=== PATIENT | male | born 1980 | race Hispanic/Latino ===

== ENCOUNTER → 2017-03-25 | Outpatient (CLI) | payer OTHER ==
[~2017-03-25] MED LIST: ALBU17IN INH; ALBU17IN2 INH; ALPH1CAP PO; AMBI10TA PO; APAP325T PO; ASTELIN NASAL SPRAY; AZEL0.1S3; BACL10TA2 PO; BENA25CA2 PO; FLUT0.003 EX; GINK500C3 PO; HYDR10T PO; KETO10TAB PO; LIDO1OIN2 EXT; LISI10TA2 PO; LORA10TA2 PO; LORT1TAB PO; MONT10TA2 PO; MUCI600T34 PO; NEXI20CA PO; NORT10SO PO; OLOP1OPD OU; PERC5TAB6 PO; PSEU30TA4 PO; QNAS80AE; REFR0.1D OU; ROBA500T PO; ROPI1TAB PO; TIZA4CAP3 PO; VITA100037 PO; VITA100072 PO; VITA200016 PO; VITA500T53 PO; VITA500T88 PO; VITATAB11 PO; ZYRT10CA PO; ZYRT10TA2 PO; [UNRECOGNIZED DRUG - CODE]; [UNRECOGNIZED DRUG - CODE] PO; [UNRECOGNIZED DRUG - CODE] XX; [UNRECOGNIZED DRUG - OTHER]; [UNRECOGNIZED DRUG - OTHER] PO; [UNRECOGNIZED DRUG - REMARK] PO; allergy shots SC; focus pain cream TOP
--- NOTE | 2017-03-25 11:11 | REP ---
NUCLEAR GASTRIC EMPTYING SCAN: Following the oral administration of 0.935 millicuries technetium 99m sulfur colloid in two scrabbled eggs in 6 ounces of water, multiple images of the upper abdomen are performed in the anterior and posterior projections for 90 minutes. The gastric activity is measured. At the end of 90 minutes, 42% of the ingested activity has emptied from the stomach. This yields at t-1/2 of 114 minutes, which is above normal t-1/2 of 90 minutes. IMPRESSION: Mildly delayed gastric emptying. Signed by Reyes Caldera MD 03/25/2017 05:41 P
== END ==
LOC: M RAD 08:39
PROVIDERS: ATTEND Internal Medicine Gastroenterology
DX: K30 Functional dyspepsia (principal)

== ENCOUNTER 2018-02-19 12:47 | Day surgery (SDC) | payer OTHER ==
[2018-02-19] MEDS: NS 1,000 ML IV (13:00)
[2018-02-19] MEDS ORDERED: LIDOCAINE 2% INJ 100 MG/5 ML SDV (FOR ANES.) As Ordered (13:31)
[2018-02-19] MEDS ORDERED: PROPOFOL 200 MG/20 ML VIAL As Ordered ×2 (13:32)
== END 2018-02-19 14:25 | disposition home or self-care (01) ==
LOC: M OPP 12:47
DX: K22.8 Other specified diseases of esophagus (principal); K44.9 Diaphragmatic hernia without obstruction or gangrene; R13.10 Dysphagia, unspecified; R12 Heartburn; E11.9 Type 2 diabetes mellitus without complications; I10 Essential (primary) hypertension; K21.9 Gastro-esophageal reflux disease without esophagitis; F41.9 Anxiety disorder, unspecified; F32.9 Major depressive disorder, single episode, unspecified; J45.909 Unspecified asthma, uncomplicated; G47.33 Obstructive sleep apnea (adult) (pediatric); R00.2 Palpitations; Z79.891 Long term (current) use of opiate analgesic; Z79.899 Other long term (current) drug therapy; Z88.8 Allergy status to other drugs, medicaments and biological substances
CPT/HCPCS: 43239

== ENCOUNTER → 2018-05-12 | Outpatient (CLI) | payer OTHER ==
[2018-05-12 10:09] LABS: BASO % 0.6 % (0.0-1.0); EOS # 0.1 10^3/uL (0.0-0.50); EOS % 2.3 % (0.0-3.0); HEMATOCRIT 46.5 % (42.0-52.0); HEMOGLOBIN 14.9 g/dl (13.5-17.5); IMMATURE GRANULOCYTE % 0.6 % (0-3.0); LYMPH # 1.9 10^3/uL (1.5-4.5); LYMPH % 39.5 % (24.0-44.0); MEAN CORPUSCULAR VOLUME 77.9 fl (80.0-96.0); MONO # 0.5 10^3/uL (0.0-0.8); MONO % 9.3 % (0.0-5.0); NEUTROPHILS # 2.3 10^3/uL (1.8-7.7); NEUTROPHILS % 47.7 % (36.0-66.0); PLATELET COUNT, AUTOMATED 280 10^3/uL (150-450); RED BLOOD COUNT 5.97 10^6/uL (4.30-6.10); RED CELL DISTRIBUTION WIDTH 13.6 % (11.5-14.5); WHITE BLOOD COUNT 4.9 10^3/uL (4.0-10.0)
[2018-05-12 10:30] LABS: HEMATOCRIT 46.5 % (42.0-52.0)
[2018-05-12 10:40] LABS: ALBUMIN 3.9 GM/DL (3.2-5.2); ALBUMIN/GLOBULIN RATIO 1.22 (1.00-1.93); ALKALINE PHOSPHATASE 85 U/L (45-117); ALT/SGPT 42 U/L (12-78); ANION GAP 6 MEQ/L (8-16); AST/SGOT 15 U/L (7-37); BILIRUBIN,TOTAL 0.3 MG/DL (0.2-1.0); BLOOD UREA NITROGEN 18 MG/DL (7-18); CARBON DIOXIDE LEVEL 29 MEQ/L (21-32); CHLORIDE LEVEL 108 MEQ/L (98-107); CREATININE FOR GFR 1.04 MG/DL (0.70-1.30); GLOMERULAR FILTRATION RATE > 60.0 (>60); GLUCOSE, FASTING 85 MG/DL (70-100); POTASSIUM SERUM 4.3 MEQ/L (3.5-5.1); SODIUM LEVEL 143 MEQ/L (136-145); TOTAL PROTEIN 7.1 GM/DL (6.4-8.2)
[2018-05-12 10:41] LABS: VITAMIN B12 LEVEL 613 PG/ML (247-911)
[2018-05-13 11:21] LABS: PRETREATED FOLATE FOR RBCFOL 12.9 NG/ML; RBC FOLATE 582.6 NG/ML (280-791)
[2018-05-17 00:12] LABS: ALUMINUM LEVEL None Detected ug/L (0-9)
[2018-05-17 00:12] LABS: GLUTATHIONE QT 309 ug/mL (176-323); MAGNESIUM RBC LEVEL 5.1 mg/dL (4.2-6.8); Methylmalonic Acid 57 nmol/L (0-378); TISSUE TRANSGLUTAMINASE IgA <2 U/mL (0-3); UNITSIGA FOR GLIADIN IGA 3 units (0-19); UNITSIGG FOR GLIADIN IGG 2 units (0-19)
== END ==
LOC: M LAB 09:14
DX: F41.1 Generalized anxiety disorder (principal); G25.81 Restless legs syndrome; F34.1 Dysthymic disorder; K58.8 Other irritable bowel syndrome
CPT/HCPCS: 82607

== ENCOUNTER → 2018-08-29 | Outpatient (CLI) | payer OTHER | LOC: M PAIN 09:00 | DX: M79.10 Myalgia, unspecified site (principal); M54.5 Low back pain; F41.9 Anxiety disorder, unspecified; I10 Essential (primary) hypertension; K21.9 Gastro-esophageal reflux disease without esophagitis; G25.81 Restless legs syndrome; J45.909 Unspecified asthma, uncomplicated; G47.30 Sleep apnea, unspecified; Z79.891 Long term (current) use of opiate analgesic; Z79.899 Other long term (current) drug therapy; Z88.6 Allergy status to analgesic agent | CPT/HCPCS: G0463 ==

== ENCOUNTER → 2018-09-26 | Outpatient (CLI) | payer OTHER ==
[~2018-09-26] MED LIST changes: -ALBU17IN INH; -ALBU17IN2 INH; -ALPH1CAP PO; -AMBI10TA PO; -APAP325T PO; -ASTELIN NASAL SPRAY; -AZEL0.1S3; -BACL10TA2 PO; -BENA25CA2 PO; +BUPIVACAINE HCL 0.25% 10 ML VIAL As Ordered; +BUPIVACAINE HCL 0.25% 30 ML VIAL As Ordered; -FLUT0.003 EX; -GINK500C3 PO; -HYDR10T PO; -KETO10TAB PO; -LIDO1OIN2 EXT; -LISI10TA2 PO; -LORA10TA2 PO; -LORT1TAB PO; -MONT10TA2 PO; -MUCI600T34 PO; -NEXI20CA PO; -NORT10SO PO; -OLOP1OPD OU; -PERC5TAB6 PO; -PSEU30TA4 PO; -QNAS80AE; -REFR0.1D OU; -ROBA500T PO; -ROPI1TAB PO; -TIZA4CAP3 PO; +TRIAMCINOLONE ACETONIDE SUSP 40 MG/ML VIAL (J3301) As Ordered; -VITA100037 PO; -VITA100072 PO; -VITA200016 PO; -VITA500T53 PO; -VITA500T88 PO; -VITATAB11 PO; -ZYRT10CA PO; -ZYRT10TA2 PO; -[UNRECOGNIZED DRUG - CODE]; -[UNRECOGNIZED DRUG - CODE] PO; -[UNRECOGNIZED DRUG - CODE] XX; -[UNRECOGNIZED DRUG - OTHER]; -[UNRECOGNIZED DRUG - OTHER] PO; -[UNRECOGNIZED DRUG - REMARK] PO; -allergy shots SC; +diazePAM 5 MG TAB As Ordered; -focus pain cream TOP; +oxyCODONE 5MG TAB As Ordered
== END ==
LOC: M PAIN 10:45
DX: M79.18 Myalgia, other site (principal); M25.511 Pain in right shoulder; M25.512 Pain in left shoulder; M54.2 Cervicalgia; I10 Essential (primary) hypertension; F41.9 Anxiety disorder, unspecified; G25.81 Restless legs syndrome; G47.30 Sleep apnea, unspecified; H53.149 Visual discomfort, unspecified; Z79.899 Other long term (current) drug therapy; Z88.6 Allergy status to analgesic agent; Z88.8 Allergy status to other drugs, medicaments and biological substances; Z91.81 History of falling
CPT/HCPCS: J3301

== ENCOUNTER → 2018-12-05 | Outpatient (CLI) | payer OTHER ==
[~2018-12-05] MED LIST changes: +ADV250INH INH; +ALBU17IN INH; +ALBU17IN2 INH; +ALPH200C2 PO; +AMBI10TA PO; +APAP325T4 PO; +ASTELIN NASAL SPRAY; +AZEL0.1S3; +BACL10TA2 PO; +BENA25CA2 PO; -BUPIVACAINE HCL 0.25% 10 ML VIAL As Ordered; -BUPIVACAINE HCL 0.25% 30 ML VIAL As Ordered; +BUPR1TAB53 PO; +EPIP0.3I2 IJ; +FLUT0.003 EX; +GINK500C3 PO; +HYDR-643 PO; +KETO10TAB PO; +LIDO1OIN2 EXT; +LISI10TA2 PO; +LISI20TA3 PO; +LORA-243 PO; +LORT1TAB PO; +MONT10TA2 PO; +MUCI600T37 PO; +NEXI20CA PO; +NORT10SO PO; +OLOP1OPD OU; +OMEP20CA3 PO; +PERC5TAB12 PO; +PSEU30TA21 PO; +QNAS80AE; +REFR0.1D OP; +REFR0.1D OU; +ROBA500T PO; +ROPI1TAB PO; +TIZA4CAP PO; +TRIA1CR80 TOP; -TRIAMCINOLONE ACETONIDE SUSP 40 MG/ML VIAL (J3301) As Ordered; +VITA100066 PO; +VITA100067 PO; +VITA100072 PO; +VITA200016 PO; +VITA500T53 PO; +VITA500T88 PO; +VITATAB11 PO; +XYZA5TAB4 PO; +ZYRT10CA PO; +ZYRT10CA5 PO; +[UNRECOGNIZED DRUG - CODE]; +[UNRECOGNIZED DRUG - CODE] PO; +[UNRECOGNIZED DRUG - CODE] XX; +[UNRECOGNIZED DRUG - OTHER]; +[UNRECOGNIZED DRUG - OTHER] PO; +[UNRECOGNIZED DRUG - REMARK] PO; +allergy shots SC; -diazePAM 5 MG TAB As Ordered; +focus pain cream TOP; -oxyCODONE 5MG TAB As Ordered
--- NOTE | 2018-12-23 00:36 | ECWPNPC ---
PATIENT NAME: JUSTIN PERRY : 1980 GENDER: MALE VISIT DATE: 12/05/2018 DISCHARGE DATE: 12/05/18 1210 VISIT LOCKED DATE TIME: PHYSICIAN: KORINA AMADO MD RESOURCE: KORINA AMADO MD REASON FOR APPOINTMENT 1. POST TPI HISTORY OF PRESENT ILLNESS HISTORY OF PRESENT ILLNESS: PAIN THE PATIENT DESCRIBES THE PAIN... 38 YEAR OLD MALE PATIENT WITH A HISTORY OF CHRONIC BACK AND NECK PAIN. THE PATIENT DESCRIBES THE PAIN ACHING, BURNING, SORE, SHARP, STABBING, SHOOTING, AND CONTINUOUS WITH A PAIN SCORE OF 6-10/10 DEPENDING ON PHYSICAL ACTIVITY. THE PATIENT HAD A TRIGGER POINT INJECTION ON 09/26/2018 OVER THE NECK AREA AND REPORTS HAVING GOOD PAIN RELIEF FOR OVER 2 MONTHS. THE PATIENT SAYS THE PAIN IN HIS BACK IS HIS MAIN CONCERN AT THIS TIME. THE PATIENT IS CURRENTLY USING OXYCODONE FOR PAIN RELIEF AND SAYS HE ONLY USES IT IF THE PAIN GETS SEVERE. THE PATIENT RECEIVED 30 TABLETS OF OXYCODONE 3 MONTHS AGO AND STILL HAS SOME LEFTOVER. PATIENT DENIES UNEXPLAINABLE WEIGHT LOSS, FEVER, CHILLS, NEW CHANGES ON HIS URINARY OR BOWEL CONTROL. FALL RISK SCREENING: SCREENING :NO FALLS IN THE PAST YEAR CURRENT MEDICATIONS TAKING PERCOCET 10-325 MG TABLET 1 TABLET NEEDED ORALLY FOR PAIN DAILY TAKING QNASL 80 MCG/ACT AEROSOL SOLUTION 2 PUFFS IN EACH NOSTRIL NASALLY ONCE A DAY TAKING SINGULAIR 10 MG TABLET 1 TABLET IN THE EVENING ORALLY ONCE A DAY TAKING XYZAL ALLERGY 24HR 5 MG TABLET 1 TABLET IN THE EVENING ORALLY ONCE A DAY TAKING NEXIUM 40 MG CAPSULE DELAYED RELEASE 1 CAPSULE ORALLY BID TAKING LISINOPRIL-HYDROCHLOROTHIAZIDE 20-25 MG TABLET 1 TABLET ORALLY ONCE A DAY, NOTES: ON HOLD TAKING ATENOLOL 25 MG TABLET 1 TABLET ORALLY ONCE A DAY TAKING RESTASIS 0.05 % EMULSION 1 DROP INTO AFFECTED EYE OPHTHALMIC TWICE A DAY TAKING PATANOL 0.1 % SOLUTION 1 DROP INTO AFFECTED EYE OPHTHALMIC TWICE A DAY TAKING FLOVENT HFA 44 MCG/ACT AEROSOL 1 PUFF INHALATION TWICE A DAY TAKING ADVAIR DISKUS 100-50 MCG/DOSE AEROSOL POWDER BREATH ACTIVATED 1 PUFF INHALATION TWICE A DAY TAKING HYDROXYZINE HCL 25 MG TABLET 1 TABLET NEEDED ORALLY EVERY 8 HRS TAKING AMBIEN CR 6.25 MG TABLET EXTENDED RELEASE 1 TABLET AT BEDTIME NEEDED ORALLY ONCE A DAY TAKING ALBUTEROL SULFATE (2.5 MG/3ML) 0.083% NEBULIZATION SOLUTION 3 ML NEEDED INHALATION FOUR TIMES DAILY NEEDED NOT-TAKING AMBIEN 10 MG TABLET 1 TABLET AT BEDTIME NEEDED ORALLY ONCE A DAY NOT-TAKING VITAMIN D HIGH POTENCY 1000 UNIT CAPSULE 1 CAPSULE ORALLY ONCE A DAY NOT-TAKING WELLBUTRIN XL 150 MG TABLET EXTENDED RELEASE 24 HOUR 1 TABLET IN THE MORNING ORALLY ONCE A DAY NOT-TAKING LUNESTA 2 MG TABLET 1 TABLET IMMEDIATELY BEFORE BEDTIME ORALLY ONCE A DAY NOT-TAKING CIPRODEX 0.3-0.1 % SUSPENSION 4 DROPS INTO LEFT EAR OTIC TWICE A DAY MEDICATION LIST REVIEWED AND RECONCILED WITH THE PATIENT PAST MEDICAL HISTORY ANXIETY HTN (HYPERTENSION) GERD (GASTROESOPHAGEAL REFLUX DISEASE) RESTLESS LEG ASTHMA SLEEP APNEA HEART PALPITATIONS LIGHT SENSITIVITY INFLUENZA A ALLERGIES NAPROXEN: NAUSEA/VOMITING: ALLERGY IBUPROFEN: NAUSEA/VOMITING: ALLERGY SURGICAL HISTORY TONSILECTOMY 2014 LEFT SHOULDER SURGURY CYSTS REMOVED ROM BOTH HANDS HEMORRHOIDECTOMY 2013 FAMILY HISTORY FATHER: ALIVE, DIAGNOSED WITH HYPERTENSION, HEART DISEASE MOTHER: ALIVE 3 SISTER(S) . 1 SON(S) . MOTHER - THYROIDSISTER - HIP DYSPLASIASISTER - THYROIDSON - AUTISM. SOCIAL HISTORY GENERAL: TOBACCO USE ARE YOU A:NONSMOKER RECREATIONAL DRUG USE DRUG USE?NO CAFFEINE CAFFEINE USE?YES HOW OFTEN AND HOW MUCH? 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 DIET: NO CONCENTRATED SWEETS.. EXERCISE: NO REGULAR EXERCISE. PAIN CLINIC PFS, CLERGY, PUBLIC HEALTH REFERRALS WAS THE PROVIDER NOTIFIED OF ANY PERTINENT INFO?YES HAS THE PATIENT BEEN EDUCATED REGARDING HIS/HER PLAN OF CARE?YES HAS THE PATIENT BEEN EDUCATED REGARDING PAIN, THE RISK FOR PAIN, THE IMPORTANCE OF EFFECTIVE PAIN MANAGEMENT, AND THE PAIN ASSESSMENT PROCESS?YES ADVANCE DIRECTIVE ADVANCE DIRECTIVE DISCUSSED WITH PATIENT:YES JUSTIN PERRY - FATHER - [phone] REVIEWED WITH PATIENT 09/26/18 1046 JSREVIEWED WITH PATIENT 12/05/18 1135 JS. HOSPITALIZATION/MAJOR DIAGNOSTIC PROCEDURE NO HOSPITALIZATION HISTORY. REVIEW OF SYSTEMS REVIEWED BY: PROVIDER: KORINA AMADO MD . CONSTITUTIONAL: ANY CHANGE IN YOUR MEDICAL CONDITION? NO . CHILLS NO . FEVER NO . INFECTION: DO YOU HAVE NEW INFECTIONS? NO . DO YOU HAVE HISTORY OF MRSA? NO . MUSCULOSKELETAL: ANY NEW PATTERNS OF PAIN OR NUMBNESS? NO . GASTROENTEROLOGY: ANY NEW CHANGE IN BOWEL CONTROL? NO . GENITOURINARY: ANY NEW CHANGE IN BLADDER CONTROL? NO . IS THERE A CHANCE YOU COULD BE ? NO . HEMATOLOGY/LYMPH: DO YOU TAKE ANY BLOOD THINNERS? (FOR EXAMPLE- COUMADIN, PLAVIX, AGGRENOX, PLATEL, PRADAXA, OR XARELTO) NO . WHEN WAS YOUR LAST DOSE? DATE: TIME: . NEUROLOGY: HAVE YOU FALLEN IN THE PAST 6 MONTHS? YES, STATES FALLS IN OCTOBER, SOME RELATED TO SLIPPING ON ICE, ONE RELATED TO LEG GIVING OUT ON HIM. STATES NO INJURIES, NO ED VISIT . ANY NEW EXTREMITY NUMBNESS OR WEAKNESS? YES, STATES NUMBNESS/WEAKNESS TO BILATERAL LEG, RIGHT>LEFT. ALSO STATES WEAKNESS TO BILATERAL ARMS. . CARDIOLOGY: DO YOU HAVE A PACEMAKER OR DEFIBRILLATOR? NO . RESPIRATORY: HAVE YOU BEEN SICK IN THE PAST WEEK? YES, STATES DIAGNOSED WITH FLU IN LATE OCTOBER, FEELS LIKE HE STILL MAY BE A BIT SICK . FEVER NO . FLU LIKE SYMPTOMS? NO . COUGH YES, PRODUCTIVE, WHITE SPUTUM . INTEGUMENTARY: DO YOU HAVE ANY RASHES OR OPEN SORES? NO . ALLERGIC/IMMUNO: ARE YOU ALLERGIC TO SHELLFISH OR IV DYE? NO . ANY NEW ALLERGIES? NO . PSYCHIATRIC: DO YOU HAVE THOUGHTS OF HURTING YOURSELF OR SOMEONE ELSE? NO . ARE YOU ABUSED, NEGLECTED, OR IN AN UNSAFE ENVIRONMENT? NO . ENDOCRINOLOGY: ARE YOU DIABETIC? NO . OTHER: DO YOU NEED ANY PRESCRIPTIONS? YES . IF YES, PLEASE LIST: ____PERCOCET . ANY NEW PROBLEMS WITH YOUR MEDICATIONS? NO . WHEN DID YOU LAST EAT? ____ . WHEN DID YOU LAST DRINK? ____ . WHAT DID YOU LAST DRINK? ____ . NAME OF PERSON DRIVING YOU HOME? ____ . DO YOU HAVE ANY OTHER QUESTIONS OR CONCERNS NO . VITAL SIGNS WT 197 LBS, HT 66 IN, BMI 31.79 INDEX, BP 137/82 MM HG, HR 75 /MIN, RR 16 /MIN, TEMP 97.3 F, OXYGEN SAT % 98%, SAFE IN ENV? (Y/N) YES, NA INITIALS [place] 11:19, REVIEWED BY: GABRIELE. EXAMINATION GENERAL EXAMINATION: PATIENT IS ALERT O X 3 AND COOPERATIVE. TENDERNESS IN THE LOWER AND UPPER BACK AREAS. PRESENCE OF TRIGGER POINTS AND BANDS OF TISSUE WITH RESTRICTION OF MOVEMENT OF THE BACK. ASSESSMENTS MYALGIA, OTHER SITE - M79.18 (PRIMARY) TREATMENT MYALGIA, OTHER SITE CLINICAL NOTES: WE DISCUSSED SEVERAL ISSUES WITH MR. PERRY'S PAIN MANAGEMENT CASE. DUE TO THE TRIGGER POINTS, BANDS OF TISSUE, AND RESTRICTION OF MOVEMENT, I WOULD LIKE TO MOVE FORWARD WITH A TRIGGER POINT INJECTION AT THIS TIME. WE DISCUSSED THE BENEFITS, RISKS, AND ALTERNATIVES OF THE INJECTION AND THE PATIENT WOULD LIKE TO PROCEED. I WILL REFILL THE PATIENT'S OXYCODONE TODAY. ISTOP _[id number] WAS REVIEWED. URINE TOXICOLOGY DONE ON 08/29/2018 SHOWS CONCURRENT RESULTS. THE PATIENT WILL FOLLOW UP 3 WEEKS AFTER THE INJECTION. INSTRUCTIONS WERE GIVEN, QUESTIONS WERE ANSWERED, PATIENT REPORTS UNDERSTANDING AND AGREES WITH THE PLAN. I, JASON PATTEN, DOCUMENTED THE ABOVE INFORMATION ACTING A SCRIBE FOR DR. AMADO. I HAVE REVIEWED THE ABOVE DOCUMENT, WRITTEN BY JASON PARDO AND I VERIFY THAT IT IS ACCURATE. OTHERS REFILL PERCOCET TABLET, 10-325 MG, 1 TABLET NEEDED, ORALLY FOR PAIN, DAILY, 30 DAY(S), 30, REFILLS 0 PREVENTIVE MEDICINE PAIN CLINIC TEACHING: PROCEDURE TEACHING REVIEWED TRIGGER POINT INJECTION PROCEDURE INFORMATION WITH PATIENT. ALSO REVIEWED PRE-PROCEDURE INSTRUCTIONS. PATIENT VERBALIZED AN UNDERSTANDING. SHELLY ARAGON 12/05/2018 12:16:11 PM > . PROCEDURE CODES FA211 ESTABILISHED PATIENT [facility] CHARGE G8427 CURRENT MEDS W/DOSAGES DOCUMENTED G8730 PAIN ASSESS POS TOOL F/U PLAN DOC DISPOSITION & COMMUNICATION FOLLOW UP 3 WEEKS ELECTRONICALLY SIGNED BY KORINA AMADO MD, ON 12/22/2018 AT 04:18 PM EST DISCLAIMER : THIS IS A VISIT SUMMARY EXTRACTED FROM THE [employer] [facility] CHART. IT IS NOT A COPY OF THE [employer] PROGRESS NOTE. MTDD
== END ==
LOC: M PAIN 11:15
PROVIDERS: ATTEND Anesthesiology
DX: M79.18 Myalgia, other site (principal); M54.2 Cervicalgia; I10 Essential (primary) hypertension; K21.9 Gastro-esophageal reflux disease without esophagitis; J45.909 Unspecified asthma, uncomplicated; F41.9 Anxiety disorder, unspecified; G25.81 Restless legs syndrome; G47.30 Sleep apnea, unspecified; Z79.899 Other long term (current) drug therapy; Z88.6 Allergy status to analgesic agent; Z88.8 Allergy status to other drugs, medicaments and biological substances

== ENCOUNTER → 2018-12-22 | Outpatient (CLI) | payer OTHER ==
[~2018-12-22] MED LIST changes: +BUPIVACAINE HCL 0.25% 10 ML VIAL As Ordered ONE; +BUPIVACAINE HCL 0.25% 30 ML VIAL As Ordered ONE; +TRIAMCINOLONE ACETONIDE SUSP 40 MG/ML VIAL (J3301) As Ordered ONE; +diazePAM 5 MG TAB As Ordered ONE; +oxyCODONE 5MG TAB As Ordered ONE
--- NOTE | 2019-01-04 23:59 | ECWPNPC ---
PATIENT NAME: JUSTIN PERRY : 1980 GENDER: MALE VISIT DATE: 12/22/2018 DISCHARGE DATE: 12/22/18 1033 VISIT LOCKED DATE TIME: PHYSICIAN: KORINA AMADO MD RESOURCE: KORINA AMADO MD REASON FOR APPOINTMENT 1. TPI HISTORY OF PRESENT ILLNESS HISTORY OF PRESENT ILLNESS: PAIN THE PATIENT DESCRIBES THE PAIN... FALL RISK SCREENING: SCREENING :NO FALLS IN THE PAST YEAR CURRENT MEDICATIONS TAKING QNASL 80 MCG/ACT AEROSOL SOLUTION 2 PUFFS IN EACH NOSTRIL NASALLY ONCE A DAY, NOTES: 12/21 2099 TAKING SINGULAIR 10 MG TABLET 1 TABLET IN THE EVENING ORALLY ONCE A DAY, NOTES: 12/22 199 TAKING XYZAL ALLERGY 24HR 5 MG TABLET 1 TABLET IN THE EVENING ORALLY ONCE A DAY, NOTES: NONE RECENT TAKING NEXIUM 40 MG CAPSULE DELAYED RELEASE 1 CAPSULE ORALLY BID, NOTES: 12/21 TAKING ATENOLOL 25 MG TABLET 1 TABLET ORALLY ONCE A DAY, NOTES: 12/22 99 TAKING RESTASIS 0.05 % EMULSION 1 DROP INTO AFFECTED EYE OPHTHALMIC TWICE A DAY, NOTES: 12/21 899 TAKING PATANOL 0.1 % SOLUTION 1 DROP INTO AFFECTED EYE OPHTHALMIC TWICE A DAY, NOTES: 12/21 1999 TAKING FLOVENT HFA 44 MCG/ACT AEROSOL 1 PUFF INHALATION TWICE A DAY, NOTES: 12/15 TAKING ADVAIR DISKUS 100-50 MCG/DOSE AEROSOL POWDER BREATH ACTIVATED 1 PUFF INHALATION TWICE A DAY, NOTES: 12/22 99 TAKING HYDROXYZINE HCL 25 MG TABLET 1 TABLET NEEDED ORALLY EVERY 8 HRS, NOTES: NONE RECENT TAKING AMBIEN CR 6.25 MG TABLET EXTENDED RELEASE 1 TABLET AT BEDTIME NEEDED ORALLY ONCE A DAY, NOTES: 12/22 99 TAKING ALBUTEROL SULFATE (2.5 MG/3ML) 0.083% NEBULIZATION SOLUTION 3 ML NEEDED INHALATION FOUR TIMES DAILY NEEDED, NOTES: 2 WEEKS AGO TAKING PERCOCET 10-325 MG TABLET 1 TABLET NEEDED ORALLY FOR PAIN DAILY, NOTES: 12/20 NOT-TAKING VITAMIN D HIGH POTENCY 1000 UNIT CAPSULE 1 CAPSULE ORALLY ONCE A DAY DISCONTINUED LISINOPRIL-HYDROCHLOROTHIAZIDE 20-25 MG TABLET 1 TABLET ORALLY ONCE A DAY, NOTES: ON HOLD DISCONTINUED AMBIEN 10 MG TABLET 1 TABLET AT BEDTIME NEEDED ORALLY ONCE A DAY DISCONTINUED WELLBUTRIN XL 150 MG TABLET EXTENDED RELEASE 24 HOUR 1 TABLET IN THE MORNING ORALLY ONCE A DAY DISCONTINUED LUNESTA 2 MG TABLET 1 TABLET IMMEDIATELY BEFORE BEDTIME ORALLY ONCE A DAY DISCONTINUED CIPRODEX 0.3-0.1 % SUSPENSION 4 DROPS INTO LEFT EAR OTIC TWICE A DAY MEDICATION LIST REVIEWED AND RECONCILED WITH THE PATIENT PAST MEDICAL HISTORY ANXIETY HTN (HYPERTENSION) GERD (GASTROESOPHAGEAL REFLUX DISEASE) RESTLESS LEG ASTHMA SLEEP APNEA HEART PALPITATIONS LIGHT SENSITIVITY INFLUENZA A LOW BACK PAIN MYALGIA CHRONIC PAIN SYNDROME ALLERGIES NAPROXEN: TIGHTENING OF THROAT: ALLERGY IBUPROFEN: NAUSEA/VOMITING: SIDE EFFECTS SURGICAL HISTORY TONSILECTOMY 2015 LEFT SHOULDER SURGURY CYSTS REMOVED FROM BOTH HANDS HEMORRHOIDECTOMY 2013 EGD X3 WITH ONE BALLOON DILATATION FAMILY HISTORY FATHER: ALIVE, DIAGNOSED WITH HYPERTENSION, HEART DISEASE MOTHER: ALIVE 3 SISTER(S) . 1 SON(S) . MOTHER - THYROIDSISTER - HIP DYSPLASIASISTER - THYROIDSON - AUTISM. SOCIAL HISTORY GENERAL: TOBACCO USE ARE YOU A:NONSMOKER ALCOHOL SCREENING DID YOU HAVE A DRINK CONTAINING ALCOHOL IN THE PAST YEAR?NO POINTS0 INTERPRETATIONNEGATIVE RECREATIONAL DRUG USE DRUG USE?NO CAFFEINE CAFFEINE USE?YES HOW OFTEN AND HOW MUCH? OCCASIONAL HIV / HEP-C SCREENING HIV TEST OFFERED TO PATIENT:YES DATE OFFERED:07/02/2017 TEST ACCEPTED:NO HEP-C TEST OFFERED TO PATIENT:NO REASON:PATIENT DECLINED TENRIISM [id number] CONFUCIANIST LANGUAGE LANGUAGES SPOKEN:AZERI EDUCATION LEVEL OF EDUCATION:FINISHED [employer]LE[employer] 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 DIET: NO CONCENTRATED SWEETS.. EXERCISE: NO REGULAR EXERCISE. PAIN CLINIC PFS, CLERGY, PUBLIC HEALTH REFERRALS WAS THE PROVIDER NOTIFIED OF ANY PERTINENT INFO? N/A HAS THE PATIENT BEEN EDUCATED REGARDING HIS/HER PLAN OF CARE?YES HAS THE PATIENT BEEN EDUCATED REGARDING PAIN, THE RISK FOR PAIN, THE IMPORTANCE OF EFFECTIVE PAIN MANAGEMENT, AND THE PAIN ASSESSMENT PROCESS?YES ADVANCE DIRECTIVE ADVANCE DIRECTIVE DISCUSSED WITH PATIENT:YES JUSTIN PERRY - FATHER - [phone] REVIEWED WITH PATIENT 09/26/18 1046 JSREVIEWED WITH PATIENT 12/05/18 1135 JS12/22/18 REVIEWED WITH PT. AD. HOSPITALIZATION/MAJOR DIAGNOSTIC PROCEDURE DENIES PAST HOSPITALIZATION REVIEW OF SYSTEMS REVIEWED BY: PROVIDER: . CONSTITUTIONAL: ANY CHANGE IN YOUR MEDICAL CONDITION? NO . CHILLS NO . FEVER NO . INFECTION: DO YOU HAVE NEW INFECTIONS? NO . DO YOU HAVE HISTORY OF MRSA? NO . MUSCULOSKELETAL: ANY NEW PATTERNS OF PAIN OR NUMBNESS? YES 3 DAYS AGO HE WAS UNABLE TO LIFT HIS LEFT ARM STATING IT FELT LIKE HE WAS CARRYING A 50LB BAG AND HE ALSO HAD SHARP PAIN IN THE SHOULDER. YEST. HE HAD SHARP PAIN IN RIGHT SHOULDER. NOT SURE WHY THIS HAPPENED__? RELATED TO SHOVELING SNOW. . GASTROENTEROLOGY: ANY NEW CHANGE IN BOWEL CONTROL? NO . GENITOURINARY: ANY NEW CHANGE IN BLADDER CONTROL? NO . IS THERE A CHANCE YOU COULD BE ? NO . HEMATOLOGY/LYMPH: DO YOU TAKE ANY BLOOD THINNERS? (FOR EXAMPLE- COUMADIN, PLAVIX, AGGRENOX, PLATEL, PRADAXA, OR XARELTO) NO . WHEN WAS YOUR LAST DOSE? DATE: TIME: . NEUROLOGY: HAVE YOU FALLEN IN THE PAST 12 MONTHS? YES STATED HAS FALLEN SEVERAL TIMES IN THE PAST 12 MONTHS. HIPS OR ANKLE GIVES OUT ON RIGHT SIDE OR ANKLE GIVES OUT ON THE LEFT. NO INJURY. . ANY NEW EXTREMITY NUMBNESS OR WEAKNESS? YES, LEFT HAND IS CONSTANTLY TINGLY--DOESN'T MATTER WHAT POSITION IT IS IN . CARDIOLOGY: DO YOU HAVE A PACEMAKER OR DEFIBRILLATOR? NO . RESPIRATORY: HAVE YOU BEEN SICK IN THE PAST WEEK? NO . FEVER NO . FLU LIKE SYMPTOMS? NO . COUGH NO . INTEGUMENTARY: DO YOU HAVE ANY RASHES OR OPEN SORES? NO . ALLERGIC/IMMUNO: ARE YOU ALLERGIC TO IV DYE? NO . ANY NEW ALLERGIES? NO . PSYCHIATRIC: DO YOU HAVE THOUGHTS OF HURTING YOURSELF OR SOMEONE ELSE? NO . ARE YOU ABUSED, NEGLECTED, OR IN AN UNSAFE ENVIRONMENT? NO . ENDOCRINOLOGY: ARE YOU DIABETIC? NO . OTHER: DO YOU NEED ANY PRESCRIPTIONS? NO . IF YES, PLEASE LIST: ____ . ANY NEW PROBLEMS WITH YOUR MEDICATIONS? NO . WHEN DID YOU LAST EAT? 12/22 0000 . WHEN DID YOU LAST DRINK? 12/22 0000 . WHAT DID YOU LAST DRINK? WATER . NAME OF PERSON DRIVING YOU HOME? BOLIVAR . DO YOU HAVE ANY OTHER QUESTIONS OR CONCERNS NO PT HAS NOT RECEIVED ANY VACCINES IN THE PAST 30 DAYS . VITAL SIGNS WT 194.6 LBS, HT 66 IN, BMI 31.41 INDEX, BP 133/83 MM HG, HR 71 /MIN, RR 18 /MIN, TEMP 97.4 F, OXYGEN SAT % 97%, SAFE IN ENV? (Y/N) Y, NA INITIALS [place] 09:07, REVIEWED BY: AD. ASSESSMENTS MYALGIA, OTHER SITE - M79.18 (PRIMARY) PROCEDURES PN TRIGGER POINT INJECTION WITH STEROIDS PRE PROCEDURE DIAGNOSIS 1. MYALGIA 2. PAIN AT LEFT NECK AREA AND BILATERAL SHOULDER AREA POST PROCEDURE DIAGNOSIS 1. MYALGIA 2. PAIN AT LEFT NECK AREA AND BILATERAL SHOULDER AREA PROCEDURE TRIGGER POINT INJECTION AT LEFT NECK AREA AND BILATERAL SHOULDER AREA SURGEON DR. KORINA AMADO SOFA BACK UPHOLSTERER NONE ANESTHESIA LOCAL PRE PROCEDURE NOTE THE PATIENT HAS A HISTORY OF CHRONIC PAIN AT THE LEFT NECK AND RIGHT AND LEFT SHOULDER AREA. I EVALUATE THE PATIENT AND REVIEWED THE CHART. THERE IS EVIDENCE OF BANDS OF TISSUE WITH RESTRICTION OF MOVEMENT AND PRESENCE OF TRIGGER POINT AT THE AFFECTED AREA. I WENT OVER THE RISKS, ALTERNATIVES, AND BENEFITS ASSOCIATED WITH THIS PROCEDURE. THE PATIENT WOULD LIKE TO PROCEED AND GIVE CONSENT TO PERFORMED THE PROCEDURE. THE PATIENT DENIES UNEXPLAINABLE WEIGHT LOSS, FEVER, CHILLS, OR NEW CHANGES IN URINARY OR BOWEL CONTROL DESCRIPTION OF PROCEDURE THE PATIENT WAS BROUGHT TO THE PROCEDURE ROOM AND PLACED IN THE SITTING POSITION. THE AREA WAS CLEANED WITH ALCOHOL. THE PROCEDURE WAS DONE USING ASEPTIC STERILE TECHNIQUE. I CHECKED LATERALITY AND THE LEVEL WHERE THE PROCEDURE WAS GOING TO BE PERFORMED WITH THE PATIENT AND THE SUPPORTING STAFF AT THE MOMENT OF THE TIME OUT IN THE PROCEDURE ROOM. USING A 25-GAUGE NEEDLE, TRIGGER POINTS WERE INJECTED AT THE LEFT NECK AREA AND RIGHT AND LEFT NECK AREA WITH A TOTAL OF 40 ML OF BUPIVACAINE 0.25% AND KENALOG 40 MG. THERE WAS NO EVIDENCE OF BLOOD, PARESTHESIA OR CEREBROSPINAL FLUID DURING THE PROCEDURE. THE PATIENT WAS SENT TO THE RECOVERY ROOM. THE PATIENT WAS MOVING THE EXTREMITIES AND DOING WELL. THERE WAS NO COMPLICATION DURING THE PROCEDURE POST PROCEDURE NOTE THE PATIENT WILL BE SEEN IN A FOLLOW UP IN THE NEXT FEW WEEKS. INSTRUCTIONS WERE GIVEN, QUESTIONS WERE ANSWERED, AND THE PATIENT EXPRESSED UNDERSTANDING AND AGREES WITH THE PLAN. I, JASON PATTEN, DOCUMENTED THE ABOVE INFORMATION ACTING A SCRIBE FOR DR. AMADO. I HAVE REVIEWED THE ABOVE DOCUMENT, WRITTEN BY JASON PATTEN SCRIBE AND I VERIFY THAT IT IS ACCURATE. PROCEDURE CODES 13374 INJECT TRIGGER POINTS 3/> DISPOSITION & COMMUNICATION FOLLOW UP 3 WEEKS ELECTRONICALLY SIGNED BY KORINA AMADO MD, MD ON 01/04/2019 AT 02:48 PM EST DISCLAIMER : THIS IS A VISIT SUMMARY EXTRACTED FROM THE [employer] CHART. IT IS NOT A COPY OF THE [employer] PROGRESS NOTE. LINDA
== END ==
LOC: M PAIN 08:30
PROVIDERS: ATTEND Anesthesiology
DX: M79.18 Myalgia, other site (principal); M54.2 Cervicalgia; M25.511 Pain in right shoulder; M25.512 Pain in left shoulder; I10 Essential (primary) hypertension; F41.9 Anxiety disorder, unspecified; G25.81 Restless legs syndrome; G47.30 Sleep apnea, unspecified; Z79.899 Other long term (current) drug therapy; Z88.6 Allergy status to analgesic agent; Z88.8 Allergy status to other drugs, medicaments and biological substances; Z91.81 History of falling
CPT/HCPCS: 20553; J3301

== ENCOUNTER → 2018-12-23 | Outpatient (CLI) | payer OTHER ==
[~2018-12-23] MED LIST changes: -BUPIVACAINE HCL 0.25% 10 ML VIAL As Ordered ONE; -BUPIVACAINE HCL 0.25% 30 ML VIAL As Ordered ONE; -TRIAMCINOLONE ACETONIDE SUSP 40 MG/ML VIAL (J3301) As Ordered ONE; -diazePAM 5 MG TAB As Ordered ONE; -oxyCODONE 5MG TAB As Ordered ONE
--- NOTE | 2019-01-06 00:05 | ECWPNPC ---
PATIENT NAME: JUSTIN PERRY : 1980 GENDER: MALE VISIT DATE: 12/23/2018 DISCHARGE DATE: 12/23/18 1558 VISIT LOCKED DATE TIME: PHYSICIAN: KORINA AMADO MD RESOURCE: KORINA AMADO MD REASON FOR APPOINTMENT 1. F/U PER DR Egan HISTORY OF PRESENT ILLNESS HISTORY OF PRESENT ILLNESS: PAIN THE PATIENT DESCRIBES THE PAIN... 38 YEAR OLD MALE PATIENT WITH A HISTORY OF CHRONIC NECK PAIN. THE PATIENT DESCRIBES THE PAIN STABBING, SHOOTING, AND INTERMITTENT WITH A PAIN SCORE OF 0-10/10 DEPENDING ON PHYSICAL ACTIVITY. THE PATIENT SAYS THE PAIN STARTS IN HIS NECK AREA AND RADIATES DOWN HIS ARMS. THE PATIENT REPORTS THAT HE HAS HAD SOME DIFFICULTY USING AND MOVING HIS ARMS OVER THE LAST FEW MONTHS. PATIENT DENIES UNEXPLAINABLE WEIGHT LOSS, FEVER, CHILLS, NEW CHANGES ON HIS URINARY OR BOWEL CONTROL. FALL RISK SCREENING: SCREENING :NO FALLS IN THE PAST YEAR CURRENT MEDICATIONS TAKING QNASL 80 MCG/ACT AEROSOL SOLUTION 2 PUFFS IN EACH NOSTRIL NASALLY ONCE A DAY TAKING SINGULAIR 10 MG TABLET 1 TABLET IN THE EVENING ORALLY ONCE A DAY TAKING XYZAL ALLERGY 24HR 5 MG TABLET 1 TABLET IN THE EVENING ORALLY ONCE A DAY TAKING NEXIUM 40 MG CAPSULE DELAYED RELEASE 1 CAPSULE ORALLY BID TAKING ATENOLOL 25 MG TABLET 1 TABLET ORALLY ONCE A DAY TAKING RESTASIS 0.05 % EMULSION 1 DROP INTO AFFECTED EYE OPHTHALMIC TWICE A DAY TAKING PATANOL 0.1 % SOLUTION 1 DROP INTO AFFECTED EYE OPHTHALMIC TWICE A DAY TAKING FLOVENT HFA 44 MCG/ACT AEROSOL 1 PUFF INHALATION TWICE A DAY TAKING ADVAIR DISKUS 100-50 MCG/DOSE AEROSOL POWDER BREATH ACTIVATED 1 PUFF INHALATION TWICE A DAY TAKING HYDROXYZINE HCL 25 MG TABLET 1 TABLET NEEDED ORALLY EVERY 8 HRS TAKING AMBIEN CR 6.25 MG TABLET EXTENDED RELEASE 1 TABLET AT BEDTIME NEEDED ORALLY ONCE A DAY TAKING ALBUTEROL SULFATE (2.5 MG/3ML) 0.083% NEBULIZATION SOLUTION 3 ML NEEDED INHALATION FOUR TIMES DAILY NEEDED TAKING PERCOCET 10-325 MG TABLET 1 TABLET NEEDED ORALLY FOR PAIN DAILY NOT-TAKING VITAMIN D HIGH POTENCY 1000 UNIT CAPSULE 1 CAPSULE ORALLY ONCE A DAY MEDICATION LIST REVIEWED AND RECONCILED WITH THE PATIENT PAST MEDICAL HISTORY ANXIETY HTN (HYPERTENSION) GERD (GASTROESOPHAGEAL REFLUX DISEASE) RESTLESS LEG ASTHMA SLEEP APNEA HEART PALPITATIONS LIGHT SENSITIVITY INFLUENZA A LOW BACK PAIN MYALGIA CHRONIC PAIN SYNDROME ALLERGIES NAPROXEN: TIGHTENING OF THROAT: ALLERGY IBUPROFEN: NAUSEA/VOMITING: SIDE EFFECTS SURGICAL HISTORY TONSILECTOMY 2015 LEFT SHOULDER SURGURY CYSTS REMOVED FROM BOTH HANDS HEMORRHOIDECTOMY 2014 EGD X3 WITH ONE BALLOON DILATATION FAMILY HISTORY FATHER: ALIVE, DIAGNOSED WITH HYPERTENSION, HEART DISEASE MOTHER: ALIVE 3 SISTER(S) . 1 SON(S) . MOTHER - THYROIDSISTER - HIP DYSPLASIASISTER - THYROIDSON - AUTISM. SOCIAL HISTORY GENERAL: TOBACCO USE ARE YOU A:NONSMOKER ALCOHOL SCREENING DID YOU HAVE A DRINK CONTAINING ALCOHOL IN THE PAST YEAR?NO POINTS0 INTERPRETATIONNEGATIVE RECREATIONAL DRUG USE DRUG USE?NO CAFFEINE CAFFEINE USE?YES HOW OFTEN AND HOW MUCH? OCCASIONAL HIV / HEP-C SCREENING HIV TEST OFFERED TO PATIENT:YES DATE OFFERED:07/02/2017 TEST ACCEPTED:NO HEP-C TEST OFFERED TO PATIENT:NO REASON:PATIENT DECLINED HINDUISM [id number] MORAVIAN LANGUAGE LANGUAGES SPOKEN:CITIZEN OF [place] EDUCATION LEVEL OF EDUCATION:FINISHED COLLEGE ASSOC. 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 DIET: NO CONCENTRATED SWEETS.. EXERCISE: NO REGULAR EXERCISE. PAIN CLINIC PFS, CLERGY, PUBLIC HEALTH REFERRALS WAS THE PROVIDER NOTIFIED OF ANY PERTINENT INFO? N/A HAS THE PATIENT BEEN EDUCATED REGARDING HIS/HER PLAN OF CARE?YES HAS THE PATIENT BEEN EDUCATED REGARDING PAIN, THE RISK FOR PAIN, THE IMPORTANCE OF EFFECTIVE PAIN MANAGEMENT, AND THE PAIN ASSESSMENT PROCESS?YES ADVANCE DIRECTIVE ADVANCE DIRECTIVE DISCUSSED WITH PATIENT:YES JUSTIN PERRY - FATHER - [phone] REVIEWED WITH PATIENT 09/26/18 1046 JSREVIEWED WITH PATIENT 12/05/18 1135 JS12/22/18 REVIEWED WITH PT. AD. HOSPITALIZATION/MAJOR DIAGNOSTIC PROCEDURE DENIES PAST HOSPITALIZATION REVIEW OF SYSTEMS REVIEWED BY: PROVIDER: KORINA AMADO MD . CONSTITUTIONAL: ANY CHANGE IN YOUR MEDICAL CONDITION? NO . CHILLS NO . FEVER NO . INFECTION: DO YOU HAVE NEW INFECTIONS? NO . DO YOU HAVE HISTORY OF MRSA? NO . MUSCULOSKELETAL: ANY NEW PATTERNS OF PAIN OR NUMBNESS? NO . GASTROENTEROLOGY: ANY NEW CHANGE IN BOWEL CONTROL? NO . GENITOURINARY: ANY NEW CHANGE IN BLADDER CONTROL? NO . IS THERE A CHANCE YOU COULD BE ? NO . HEMATOLOGY/LYMPH: DO YOU TAKE ANY BLOOD THINNERS? (FOR EXAMPLE- COUMADIN, PLAVIX, AGGRENOX, PLATEL, PRADAXA, OR XARELTO) NO . WHEN WAS YOUR LAST DOSE? DATE: TIME: . NEUROLOGY: HAVE YOU FALLEN IN THE PAST 12 MONTHS? NO . ANY NEW EXTREMITY NUMBNESS OR WEAKNESS? NO . CARDIOLOGY: DO YOU HAVE A PACEMAKER OR DEFIBRILLATOR? NO . RESPIRATORY: HAVE YOU BEEN SICK IN THE PAST WEEK? NO . FEVER NO . FLU LIKE SYMPTOMS? NO . COUGH NO . INTEGUMENTARY: DO YOU HAVE ANY RASHES OR OPEN SORES? NO . ALLERGIC/IMMUNO: ARE YOU ALLERGIC TO IV DYE? NO . ANY NEW ALLERGIES? NO . PSYCHIATRIC: DO YOU HAVE THOUGHTS OF HURTING YOURSELF OR SOMEONE ELSE? NO . ARE YOU ABUSED, NEGLECTED, OR IN AN UNSAFE ENVIRONMENT? NO . ENDOCRINOLOGY: ARE YOU DIABETIC? NO . OTHER: DO YOU NEED ANY PRESCRIPTIONS? NO . IF YES, PLEASE LIST: ____ . ANY NEW PROBLEMS WITH YOUR MEDICATIONS? NO . WHEN DID YOU LAST EAT? ____ . WHEN DID YOU LAST DRINK? ____ . WHAT DID YOU LAST DRINK? ____ . NAME OF PERSON DRIVING YOU HOME? ____ . DO YOU HAVE ANY OTHER QUESTIONS OR CONCERNS NO . VITAL SIGNS WT 194.6 LBS, HT 66 IN, BMI 31.41 INDEX, BP 136/82 MM HG, HR 98 /MIN, RR 16 /MIN, TEMP 97.9 F, OXYGEN SAT % 96%, NA INITIALS SC 14:13. EXAMINATION GENERAL EXAMINATION: PATIENT IS ALERT O X 3 AND COOPERATIVE. THERE IS A LUMP OVER THE LEFT SHOULDER. PAIN INCREASES OVER THE CERVICAL FACET JOINTS WITH EXTENSION AND LATERAL ROTATION OF THE NECK. MRI OF THE CERVICAL SPINE DONE ON 07/16/2016 SHOWS FACET ARTHROPATHY CHANGES AT MULTIPLE LEVELS. 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 PERRY'S PAIN MANAGEMENT CASE. I WILL ORDER A NEW CERVICAL MRI DUE TO THE INCREASES IN THE PATIENT'S ARM WEAKNESS. THE PATIENT WILL SPEAK WITH HIS PRIMARY CARE REGARDING THE SWELLING OVER HIS LEFT SHOULDER. THE PATIENT WILL FOLLOW UP IN A FEW WEEKS TO REVIEW THE MRI. INSTRUCTIONS WERE GIVEN, QUESTIONS WERE ANSWERED, PATIENT REPORTS UNDERSTANDING AND AGREES WITH THE PLAN. I, JASON PATTEN, DOCUMENTED THE ABOVE INFORMATION ACTING A SCRIBE FOR DR. AMADO. I HAVE REVIEWED THE ABOVE DOCUMENT, WRITTEN BY JASON PATTEN SCRIBE AND I VERIFY THAT IT IS ACCURATE. PROCEDURE CODES FA211 ESTABILISHED PATIENT [facility] CHARGE G8427 CURRENT MEDS W/DOSAGES DOCUMENTED G8730 PAIN ASSESS POS TOOL F/U PLAN DOC DISPOSITION & COMMUNICATION FOLLOW UP 3 WEEKS ELECTRONICALLY SIGNED BY KORINA AMADO MD, MD ON 01/05/2019 AT 05:48 PM EST DISCLAIMER : THIS IS A VISIT SUMMARY EXTRACTED FROM THE [employer] CHART. IT IS NOT A COPY OF THE [employer] PROGRESS NOTE. MTDKike
== END ==
LOC: M PAIN 14:00
PROVIDERS: ATTEND Anesthesiology
DX: M50.10 Cervical disc disorder with radiculopathy, unspecified cervical region (principal); G89.29 Other chronic pain; I10 Essential (primary) hypertension; J45.909 Unspecified asthma, uncomplicated; G25.81 Restless legs syndrome; F41.9 Anxiety disorder, unspecified; G47.30 Sleep apnea, unspecified; Z79.899 Other long term (current) drug therapy; Z88.6 Allergy status to analgesic agent; Z88.8 Allergy status to other drugs, medicaments and biological substances

== ENCOUNTER → 2019-05-11 | Outpatient (CLI) | payer OTHER ==
[~2019-05-11] MED LIST changes: -OLOP1OPD OU; +PATA2.5S OU; +VITA100018 PO; -VITA100072 PO; +VITA500T17 PO; -VITA500T53 PO
--- NOTE | 2019-05-11 12:21 | REP ---
MRI CERVICAL SPINE WITHOUT CONTRAST: HISTORY: Cervical pain. Arm weakness. Shooting pain in the arm for 10+ years. Comparison CT study of the neck July 04, 2016. TECHNIQUE: Sagittal and axial T1- and T2-weighted scans are acquired in the usual fashion with and without fat saturation. Sequences include spin echo, turbo spin echo, and STIR imaging sequences. MRI FINDINGS: There is straightening of the normal cervical lordosis. Cervical vertebral body heights are preserved. Alignment is normal. Cervical cord is normal in coarse, caliber and signal intensity. Craniocervical junction is unremarkable. Axial and sagittal images taken at the C2-3, C3-4, C4-5 disc levels are unremarkable. At C5-6, there is diffuse moderate disc bulging. There is right-sided uncovertebral spurring producing right-sided neural foraminal narrowing. The disc bulging effaces the ventral margin of the cord and subarachnoid space. No central canal stenosis is seen. At C6-7, there is no evidence of disc herniation. The C7-T1 level is unremarkable. IMPRESSION: Diffuse disc bulging at the C5-6 disc associated with moderate right-sided uncovertebral spurring producing neural foraminal narrowing. Straightening. Electronically Signed by Nigel Grace MD 05/11/2019 01:38 P
== END ==
LOC: M RAD 10:17
PROVIDERS: ATTEND Anesthesiology
DX: M54.2 Cervicalgia (principal)

== ENCOUNTER → 2019-07-17 | Outpatient (CLI) | payer OTHER ==
[~2019-07-17] MED LIST changes: +LISI10TA15 PO; -LISI10TA2 PO; +LISI20TA20 PO; -LISI20TA3 PO; +OMEP1CAP73 PO; -OMEP20CA3 PO
--- NOTE | 2019-07-24 00:25 | ECWPNPC ---
PATIENT NAME: JUSTIN PERRY : 1980 GENDER: MALE VISIT DATE: 07/17/2019 DISCHARGE DATE: 07/17/19 1228 VISIT LOCKED DATE TIME: PHYSICIAN: KORINA AMADO MD RESOURCE: KORINA AMADO MD REASON FOR APPOINTMENT 1. NECK & BACK PAIN HISTORY OF PRESENT ILLNESS HISTORY OF PRESENT ILLNESS: PAIN THE PATIENT DESCRIBES THE PAIN... 38 YEAR OLD MALE PATIENT WITH A HISTORY OF CHRONIC CERVICAL PAIN. THE PATIENT DESCRIBES THE PAIN ACHING, SHARP, STABBING, SHOOTING, AND DAILY WITH A PAIN SCORE OF 5-10/10 DEPENDING ON PHYSICAL ACTIVITY. THE PATIENT RECEIVED A NECK AND SHOULDER TRIGGER POINT INJECTIONS IN THE PAST THAT HELPED WITH HIS PAIN. THE PATIENT SAYS HIS PAIN HAS RETURNED AND HE WOULD LIKE TO RECEIVE THE SAME INJECTIONS. PATIENT DENIES UNEXPLAINABLE WEIGHT LOSS, FEVER, CHILLS, NEW CHANGES ON HIS URINARY OR BOWEL CONTROL. FALL RISK SCREENING: SCREENING :NO FALLS REPORTED IN THE LAST YEAR CURRENT MEDICATIONS TAKING QNASL 80 MCG/ACT AEROSOL SOLUTION 2 PUFFS IN EACH NOSTRIL NASALLY ONCE A DAY TAKING SINGULAIR 10 MG TABLET 1 TABLET IN THE EVENING ORALLY ONCE A DAY TAKING XYZAL ALLERGY 24HR 5 MG TABLET 1 TABLET IN THE EVENING ORALLY ONCE A DAY TAKING NEXIUM 40 MG CAPSULE DELAYED RELEASE 1 CAPSULE ORALLY BID TAKING ATENOLOL 25 MG TABLET 1 TABLET ORALLY ONCE A DAY TAKING RESTASIS 0.05 % EMULSION 1 DROP INTO AFFECTED EYE OPHTHALMIC TWICE A DAY TAKING PATANOL 0.1 % SOLUTION 1 DROP INTO AFFECTED EYE OPHTHALMIC TWICE A DAY TAKING FLOVENT HFA 44 MCG/ACT AEROSOL 1 PUFF INHALATION TWICE A DAY TAKING HYDROXYZINE HCL 25 MG TABLET 1 TABLET NEEDED ORALLY EVERY 8 HRS TAKING AMBIEN CR 6.25 MG TABLET EXTENDED RELEASE 1 TABLET AT BEDTIME NEEDED ORALLY ONCE A DAY TAKING ALBUTEROL SULFATE (2.5 MG/3ML) 0.083% NEBULIZATION SOLUTION 3 ML NEEDED INHALATION FOUR TIMES DAILY NEEDED TAKING PERCOCET 10-325 MG TABLET 1 TABLET NEEDED ORALLY FOR PAIN DAILY TAKING TYLENOL 1 TAB ORAL EVERY 4 HOURS NEEDED NOT-TAKING ADVAIR DISKUS 100-50 MCG/DOSE AEROSOL POWDER BREATH ACTIVATED 1 PUFF INHALATION TWICE A DAY NOT-TAKING KETOROLAC TROMETHAMINE 10 MG TABLET 1 TABLET WITH FOOD OR MILK NEEDED ORALLY EVERY 6 HRS NOT-TAKING VITAMIN D HIGH POTENCY 1000 UNIT CAPSULE 1 CAPSULE ORALLY ONCE A DAY MEDICATION LIST REVIEWED AND RECONCILED WITH THE PATIENT PAST MEDICAL HISTORY ANXIETY HTN (HYPERTENSION) GERD (GASTROESOPHAGEAL REFLUX DISEASE) RESTLESS LEG ASTHMA SLEEP APNEA HEART PALPITATIONS LIGHT SENSITIVITY INFLUENZA A LOW BACK PAIN MYALGIA CHRONIC PAIN SYNDROME ALLERGIES NAPROXEN: TIGHTENING OF THROAT/THROAT DISCOMFORT - ALLERGY IBUPROFEN: NAUSEA/VOMITING - SIDE EFFECTS SURGICAL HISTORY TONSILECTOMY 2015 LEFT SHOULDER SURGURY CYSTS REMOVED FROM BOTH HANDS HEMORRHOIDECTOMY 2013 EGD X3 WITH ONE BALLOON DILATATION FAMILY HISTORY FATHER: ALIVE, DIAGNOSED WITH HYPERTENSION, HEART DISEASE MOTHER: ALIVE 3 SISTER(S) . 1 SON(S) . MOTHER - THYROIDSISTER - HIP DYSPLASIASISTER - THYROIDSON - AUTISM. SOCIAL HISTORY GENERAL: TOBACCO USE ARE YOU A:NONSMOKER HIV / HEP-C SCREENING HIV TEST OFFERED TO PATIENT:YES DATE OFFERED:07/02/2017 TEST ACCEPTED:NO REASON:PATIENT DECLINED HEP-C TEST OFFERED TO PATIENT:NO EDUCATION LEVEL OF EDUCATION:FINISHED COLLEGE ASSOC. DEGREE DIET: NO CONCENTRATED SWEETS.. LANGUAGE LANGUAGES SPOKEN:OCCITAN DOMESTIC VIOLENCE DO YOU FEEL SAFE IN YOUR ENVIRONMENT?YES RECREATIONAL DRUG USE DRUG USE?NO EXERCISE: NO REGULAR EXERCISE. LEARNING BARRIERS / SPECIAL NEEDS BARRIERS TO LEARNING?NO HEARING IMPAIRED?NO VISION IMPAIRED?YES :CORRECTIVE LENSES READING GLASSES COGNITIVELY IMPAIRED?NO READINESS TO LEARN?YES LEARNING PREFERENCES?NO LEARNING CAPABILITIES PRESENT?YES EMOTIONAL BARRIERS?NO SPECIAL DEVICES?NO SENIOR RELIABILITY ENGINEER NEEDED?NO PAIN CLINIC PFS, CLERGY, PUBLIC HEALTH REFERRALS WAS THE PROVIDER NOTIFIED OF ANY PERTINENT INFO? N/A HAS THE PATIENT BEEN EDUCATED REGARDING HIS/HER PLAN OF CARE?YES HAS THE PATIENT BEEN EDUCATED REGARDING PAIN, THE RISK FOR PAIN, THE IMPORTANCE OF EFFECTIVE PAIN MANAGEMENT, AND THE PAIN ASSESSMENT PROCESS?YES LATEX QUESTIONNAIRE LATEX ALLERGY : HAVE YOU EVER DEVELOPED ANY TYPE OF REACTION AFTER HANDLING LATEX PRODUCTS SUCH RUBBER GLOVES, CONDOMS, DIAPHRAGMS, BALLOONS, SOCKS, OR UNDERWEAR?NO LATEX ALLERGY : HAVE YOU EVER DEVELOPED ANY TYPE OF REACTION DURING OR AFTER DENTAL APPOINTMENT, VAGINAL/RECTAL EXAMINATION, SURGICAL PROCEDURE, OR ANY OTHER EXPOSURE?NO LATEX RISK : HAVE YOU EVER HAD ANY DIFFICULTY BREATHING OR HIVES AFTER EATING OR HANDLING ANY FRUITS, OR VEGETABLES; SUCH KIWI, BANANAS, STONE FRUITS, OR CHESTNUTSYES - PLEASE INDICATE : KIWI LATEX RISK : DO YOU HAVE A PREVIOUS PERSONAL HISTORY OF MORE THAN NINE SURGERIES, SPINA BIFIDA, OR REPEATED CATHERIZATIONS? NO LATEX RISK : ARE YOU FREQUENTLY EXPOSED TO LATEX PRODUCTS IN YOUR OCCUPATION?NO DATE ASKED : 03/28/2019 CAFFEINE CAFFEINE USE?YES HOW OFTEN AND HOW MUCH? 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 REVIEWED WITH PATIENT 09/26/18 1046 JSREVIEWED WITH PATIENT 12/05/18 1135 JS12/22/18 REVIEWED WITH PT. ADREVIEWED WITH PATIENT 07/17/19 1000 LAS. HOSPITALIZATION/MAJOR DIAGNOSTIC PROCEDURE NO HOSPITALIZATION HISTORY. REVIEW OF SYSTEMS REVIEWED BY: PROVIDER: KORINA AMADO MD . CONSTITUTIONAL: ANY CHANGE IN YOUR MEDICAL CONDITION? NO . CHILLS NO . FEVER NO . INFECTION: DO YOU HAVE NEW INFECTIONS? NO . DO YOU HAVE HISTORY OF MRSA? NO . MUSCULOSKELETAL: ANY NEW PATTERNS OF PAIN OR NUMBNESS? YES PT REPORTS GENERALIZED INCREASE IN PAIN IN NECK AND BACK. HAS BEEN TO THE ED TWICE, TREATED WITH KETOROLAC AND NOW SEES A CHIROPRACTOR. HAS A BIO-WAVE DEVICE. . GASTROENTEROLOGY: ANY NEW CHANGE IN BOWEL CONTROL? NO . GENITOURINARY: ANY NEW CHANGE IN BLADDER CONTROL? NO . IS THERE A CHANCE YOU COULD BE ? NO . HEMATOLOGY/LYMPH: DO YOU TAKE ANY BLOOD THINNERS? (FOR EXAMPLE- COUMADIN, PLAVIX, AGGRENOX, PLATEL, PRADAXA, OR XARELTO) NO . WHEN WAS YOUR LAST DOSE? DATE: TIME: . NEUROLOGY: HAVE YOU FALLEN IN THE PAST 12 MONTHS? NO . ANY NEW EXTREMITY NUMBNESS OR WEAKNESS? NO . CARDIOLOGY: DO YOU HAVE A PACEMAKER OR DEFIBRILLATOR? NO . RESPIRATORY: HAVE YOU BEEN SICK IN THE PAST WEEK? NO . FEVER NO . FLU LIKE SYMPTOMS? NO . COUGH NO . INTEGUMENTARY: DO YOU HAVE ANY RASHES OR OPEN SORES? NO . ALLERGIC/IMMUNO: ARE YOU ALLERGIC TO IV DYE? NO . ANY NEW ALLERGIES? NO . PSYCHIATRIC: DO YOU HAVE THOUGHTS OF HURTING YOURSELF OR SOMEONE ELSE? NO . ARE YOU ABUSED, NEGLECTED, OR IN AN UNSAFE ENVIRONMENT? NO . ENDOCRINOLOGY: ARE YOU DIABETIC? NO . OTHER: DO YOU NEED ANY PRESCRIPTIONS? NO . IF YES, PLEASE LIST: ____ . ANY NEW PROBLEMS WITH YOUR MEDICATIONS? NO . WHEN DID YOU LAST EAT? ____ . WHEN DID YOU LAST DRINK? ____ . WHAT DID YOU LAST DRINK? ____ . NAME OF PERSON DRIVING YOU HOME? ____ . DO YOU HAVE ANY OTHER QUESTIONS OR CONCERNS NO . VITAL SIGNS WT 202.8 LBS, HT 66 IN, BMI 32.73 INDEX, BP 122/74 MM HG, HR 70 /MIN, RR 16 /MIN, TEMP 98.1 F, OXYGEN SAT % 98%, SAFE IN ENV? (Y/N) YES, NA INITIALS AW 1003, REVIEWED BY: ANEL. ASSESSMENTS MYALGIA, OTHER SITE - M79.18 (PRIMARY) CERVICALGIA - M54.2 SPONDYLOSIS OF CERVICAL REGION WITHOUT MYELOPATHY OR RADICULOPATHY - M47.812 TREATMENT MYALGIA, OTHER SITE CLINICAL NOTES: WE DISCUSSED SEVERAL ISSUES WITH MR. PERRY'S PAIN MANAGEMENT CASE. DUE TO THE TRIGGER POINTS, BANDS OF TISSUE, AND RESTRICTION OF MOVEMENT, I WOULD LIKE TO MOVE FORWARD WITH BILATERAL NECK AND SHOULDER TRIGGER POINT INJECTIONS AT THIS TIME. WE DISCUSSED THE BENEFITS, RISKS, AND ALTERNATIVES OF THE INJECTION AND THE PATIENT WOULD LIKE TO PROCEED. THE PATIENT RECEIVED NECK AND SHOULDER TRIGGER POINT INJECTIONS IN THE PAST THAT PROVIDED HIM WITH GOOD PAIN RELIEF. I REFILLED THE PATIENT'S PERCOCET 10-325 MG 30 TABLETS FOR 3 MONTHS. PATIENT IS AWARE NOT TO USE THIS MEDICATION WITH HIS AMBIEN MEDICATION. URINE TOXICOLOGY DONE ON 08/29/2018 SHOWS CONCURRENT RESULTS. ANOTHER UTOX WILL BE PERFORMED TODAY. ISTOP _# [id number] WAS REVIEWED. THE PATIENT WILL FOLLOW UP IN SEVERAL WEEKS AFTER THE INJECTION. INSTRUCTIONS WERE GIVEN, QUESTIONS WERE ANSWERED, PATIENT REPORTS UNDERSTANDING AND AGREES WITH THE PLAN. I, LILLY SCHREIBER, DOCUMENTED THE ABOVE INFORMATION ACTING A SCRIBE FOR DR. AMADO. I HAVE REVIEWED THE ABOVE DOCUMENT, WRITTEN BY LILLY SCHREIBER SCRIBMissy AND I VERIFY THAT IT IS ACCURATE. . OTHERS REFILL PERCOCET TABLET, 10-325 MG, 1 TABLET NEEDED, ORALLY FOR PAIN, DAILY ( FOR CHRONIC PAIN CODE D 3 MONTHS), 90 DAYS, 30, REFILLS 0 PROCEDURE CODES FA211 ESTABILISHED PATIENT [facility] FACILITY CHARGE G8427 CURRENT MEDS W/DOSAGES DOCUMENTED G8730 PAIN ASSESS POS TOOL F/U PLAN DOC DISPOSITION & COMMUNICATION FOLLOW UP REASON: F/U W/ CHIEF HUMAN RESOURCES OFFICER ELECTRONICALLY SIGNED BY KORINA AMADO MD, MD ON 07/23/2019 AT 01:30 PM EDT DISCLAIMER : THIS IS A VISIT SUMMARY EXTRACTED FROM THE [facility] CHART. IT IS NOT A COPY OF THE [employer] PROGRESS NOTE. MTDD
== END ==
LOC: M PAIN 10:00
PROVIDERS: ATTEND Anesthesiology
DX: M79.18 Myalgia, other site (principal); M54.2 Cervicalgia; M47.812 Spondylosis without myelopathy or radiculopathy, cervical region; Z86.59 Personal history of other mental and behavioral disorders; I10 Essential (primary) hypertension; K21.9 Gastro-esophageal reflux disease without esophagitis; G25.81 Restless legs syndrome; J45.909 Unspecified asthma, uncomplicated; Z88.6 Allergy status to analgesic agent; Z79.899 Other long term (current) drug therapy

== ENCOUNTER 2020-02-02 11:10 | Day surgery (SDC) | payer OTHER ==
[~2020-02-02] VITALS: Ht 165.1 cm; Wt 88.0 kg
[~2020-02-02 11:10] MED LIST changes: +AIRB1CHW3 PO; +AMBI12.52 PO; +ATEN25TA PO; +DITR5TAB PO; +DRYS20SO TOP; +GNP650TA8 PO; +LEVOTAB10 PO; -MONT10TA2 PO; +MONT10TA4 PO; +NS 1,000 ML IV ONE; +PRAZ1CAP PO; +PROAAER10 INH; +QVAR80AE8 IN; +REST0.05 OD; +REST0.057 OP; -ROPI1TAB PO; +ROPI1TAB3 PO; +SING10TA32 PO; +VITA30004 PO
[2020-02-02] MEDS ORDERED: LIDOCAINE 2% INJ 100 MG/5 ML SDV (FOR ANES.) As Ordered ONE (13:18)
[2020-02-02] MEDS ORDERED: propofoL 200 MG/20 ML VIAL As Ordered ONE ×3 (13:18→13:49)
[2020-02-02 14:15] VITALS: BP 134/82
--- NOTE | 2020-02-02 14:27 | ROOR ---
Patient Name: Steve Arroyo Procedure Date: 02/02/2020 1:18 PM Date of : 1980 Age: 39 Room: [facility] Gender: Male Note Status: Finalized Procedure: Upper GI endoscopy Indications: Dysphagia, Suspected esophageal reflux Providers: Thiago Ro MD Referring MD: Art Estes, [facility], Admin. Requesting Provider: Medicines: Monitored Anesthesia Care Complications: No immediate complications. Procedure: Pre-Anesthesia Assessment: - Prior to the procedure, a History and Physical was performed, and patient medications and allergies were reviewed. The patient is competent. The risks and benefits of the procedure and the sedation options and risks were discussed with the patient. All questions were answered and informed consent was obtained. Patient identification and proposed procedure were verified by the physician, the nurse and the anesthesiologist in the procedure room. Mental Status Examination: alert and oriented. Airway Examination: normal oropharyngeal airway and neck mobility. Prophylactic Antibiotics: The patient does not require prophylactic antibiotics. Prior Anticoagulants: The patient has taken no previous anticoagulant or antiplatelet agents. ASA Grade Assessment: II - A patient with mild systemic disease. After reviewing the risks and benefits, the patient was deemed in satisfactory condition to undergo the procedure. The anesthesia plan was to use monitored anesthesia care (MAC). Immediately prior to administration of medications, the patient was re-assessed for adequacy to receive sedatives. The heart rate, respiratory rate, oxygen saturations, blood pressure, adequacy of pulmonary ventilation, and response to care were monitored throughout the procedure. The physical status of the patient was re-assessed after the procedure. The Endoscope was introduced through the mouth, and advanced to the second part of duodenum. The upper GI endoscopy was accomplished with ease. The patient tolerated the procedure well. Findings: The Z-line was irregular and was found 40 cm from the incisors. This was biopsied with a cold forceps for histology and evaluation to rule out Esquivel's Esophagus. A TTS dilator was passed through the scope. Dilation with a 15-16.5-18 mm balloon dilator was performed to 18 mm. The dilation site was examined following endoscope reinsertion and showed no change. A few small sessile polyps were found in the gastric fundus. A medium-sized, umbilicated mass with no bleeding and no stigmata of recent bleeding was found on the greater curvature of the gastric antrum. This was biopsied with a cold forceps for histology. Estimated blood loss was minimal. The first portion of the duodenum and second portion of the duodenum were normal. Extrinsic compression on the stomach was found on the posterior wall of the stomach. There was a pulsatile mass impinging on the posterior wall of the stomach at and below the cardia. Impression: - Z-line irregular, 40 cm from the incisors. Biopsied. Dilated. - A few gastric polyps. 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 Biopsied. - Normal first portion of the duodenum and second portion of the duodenum. Recommendation: - Discharge patient to home. - Resume previous diet. - Continue present medications. - Await pathology results. - Return to endoscopist in 1 week. Thiago Ro MD Thiago Ro MD 02/02/2020 2:27:22 PM Electronically signed by Thiago Ro MD Number of Addenda: 0 Note Initiated On: 02/02/2020 1:18 PM Estimated Blood Loss: Estimated blood loss was minimal.
== END 2020-02-02 14:40 | disposition home or self-care (01) ==
LOC: M OPP 11:10
PROVIDERS: ATTEND Surgery
DX: R13.10 Dysphagia, unspecified (principal); K22.8 Other specified diseases of esophagus; K31.7 Polyp of stomach and duodenum; D49.0 Neoplasm of unspecified behavior of digestive system; R00.2 Palpitations; I10 Essential (primary) hypertension; R73.03 Prediabetes; K58.9 Irritable bowel syndrome, unspecified; K21.9 Gastro-esophageal reflux disease without esophagitis; M19.90 Unspecified osteoarthritis, unspecified site; L30.9 Dermatitis, unspecified; F32.9 Major depressive disorder, single episode, unspecified; F41.9 Anxiety disorder, unspecified; J45.909 Unspecified asthma, uncomplicated; G47.30 Sleep apnea, unspecified; R06.83 Snoring; F43.10 Post-traumatic stress disorder, unspecified; Z88.8 Allergy status to other drugs, medicaments and biological substances

== ENCOUNTER → 2021-02-14 | Outpatient (CLI) | payer OTHER ==
[~2021-02-14] MED LIST changes: +MONT10TA10 PO; -MONT10TA4 PO; -NS 1,000 ML IV ONE
--- NOTE | 2021-02-15 10:13 | ECHO ---
DATE OF PROCEDURE: 02/14/2021 Age: 40 Gender: Male Height: 168 cm Weight: 91 kg REFERRING PHYSICIAN: Taye Ruiz DO INDICATION: Preoperative evaluation, palpitations. MEASUREMENTS: IVS 0.8 cm LV 5.2 cm LVPW 1.0 cm LA 3.8 cm Aorta 3.0 cm RV 3.3 cm IVC 1.1 cm Mitral E wave velocity 81 Mitral A wave 46 E prime septal 11.4 E prime lateral 12.6 FINDINGS: This study is of acceptable technical quality. The patient is in sinus rhythm. Normal LV size, normal LV systolic function with estimated EF 60% to 65%. Right ventricle also appears to have normal size and systolic function. Both atria appear normal. All four valves were well seen and appear normal. No pericardial effusion is noted. Inferior vena cava is normal size and appropriately collapses with inspiration indicative of normal central venous pressure. Aortic root, aortic arch, and visualized segments of abdominal aorta all appear normal. Doppler interrogation reveals competent aortic valve. The same applies for mitral valve. Trace tricuspid insufficiency seen. Calculated pulmonary artery pressure is approximately 20 mmHg corresponding to normal values. Pulmonic valve is functionally competent. Mitral inflow pattern and tissue Doppler imaging of the mitral annulus reveals normal diastolic function. CONCLUSIONS: 1. Study is of good technical quality, underlying sinus rhythm. 2. Normal LV size, systolic and diastolic function. 3. No significant valvular disease. 4. Normal central venous pressure and likely normal pulmonary artery pressure. 5. Essentially normal echocardiogram. [facility]
== END ==
LOC: M CARPUL 10:21
PROVIDERS: ATTEND Family Medicine
DX: Z01.818 Encounter for other preprocedural examination (principal); R00.2 Palpitations

== ENCOUNTER 2021-06-07 13:22 | Day surgery (SDC) | payer OTHER ==
[~2021-06-07] VITALS: Ht 167.6 cm; Wt 94.3 kg
[~2021-06-07 13:22] MED LIST changes: +BUPR150T12 PO; +D31000TA2 PO; +FLUO20CA22 PO; +GAVICHW PO; +ROPI0.5T3 PO; +SUCR1TAB56 PO; +XYZASOL2 PO
[2021-06-07] MEDS ORDERED: propofoL 200 MG/20 ML VIAL As Ordered ONE ×2 (14:07→14:26)
[2021-06-07] MEDS ORDERED: LIDOCAINE 2% 100MG/5ML SDV (FOR ANES.) As Ordered ONE (14:07)
--- NOTE | 2021-06-07 14:34 | ROOR ---
Patient Name: Steve Arroyo Procedure Date: 06/07/2021 2:13 PM Date of : 1980 Age: 40 Room: [facility] Gender: Male Note Status: Finalized Procedure: Upper Endoscopy + Biopsies + Balloon dilatation Indications: Dysphagia, Heartburn, Exclusion of Esquivel's esophagus Providers: Gopi Osborne MD Referring MD: LUCINA VERDUGO MD Requesting Provider: Medicines: Monitored Anesthesia Care Complications: No immediate complications. Procedure: Pre-Anesthesia Assessment: - The heart rate, respiratory rate, oxygen saturations, blood pressure, adequacy of pulmonary ventilation, and response to care were monitored throughout the procedure. The Endoscope was introduced through the mouth, and advanced to the second part of duodenum. The upper GI endoscopy was accomplished without difficulty. The patient tolerated the procedure well. Findings: The Z-line was variable and was found 40 cm from the incisors. Multiple biopsies were obtained with cold forceps for evaluation to rule out Esquivel's Esophagus randomly at the gastroesophageal junction. A TTS dilator was passed through the scope. Dilation with a 15-16.5-18 mm balloon dilator was performed to 18 mm. A small hiatal hernia was present. No other significant abnormalities were identified in a careful examination of the stomach. The exam of the duodenum was otherwise normal. A single smooth, umbilicated lesion measuring small in diameter was found on the greater curvature of the stomach. Impression: - Z-line variable, 40 cm from the incisors. Dilated. - Small hiatal hernia. - A single lesion was found in the stomach. - Multiple biopsies were obtained at the gastroesophageal junction. - The examination was otherwise normal. Recommendation: - Patient has a contact number available for emergencies. The signs and symptoms of potential delayed complications were discussed with the patient. Return to normal activities tomorrow. Written discharge instructions were provided to the patient. - High fiber diet. - Discharge patient to home. - Follow an antireflux regimen. - Continue present medications. - Await pathology results. - Telephone GI clinic for pathology results in 1 week. - Repeat upper endoscopy for surveillance based on pathology results. - Return to referring physician. - The findings and recommendations were discussed with the patient's family. Procedure Code(s): --- Professional --- 06790, Esophagogastroduodenoscopy, flexible, transoral; with transendoscopic balloon dilation of esophagus (less than 30 mm diameter) Diagnosis Code(s): --- Professional --- K22.8, Other specified diseases of esophagus K44.9, Diaphragmatic hernia without obstruction or gangrene K31.89, Other diseases of stomach and duodenum R13.10, Dysphagia, unspecified R12, Heartburn CPT copyright 2019 [employer]. All rights reserved. The codes documented in this report are preliminary and upon data coder operator review may be revised to meet current compliance requirements. Gopi Osborne MD Gopi Osborne MD 06/07/2021 2:34:30 PM Electronically signed by Gopi Osborne MD Number of Addenda: 0 Note Initiated On: 06/07/2021 2:13 PM Estimated Blood Loss: Estimated blood loss: none.
[2021-06-07 14:51] VITALS: BP 136/85
== END 2021-06-07 14:53 | disposition home or self-care (01) ==
LOC: M OPP 13:22
PROVIDERS: ATTEND Internal Medicine Gastroenterology
DX: K22.8 Other specified diseases of esophagus (principal); K31.89 Other diseases of stomach and duodenum; K44.9 Diaphragmatic hernia without obstruction or gangrene; R13.10 Dysphagia, unspecified; R12 Heartburn; R00.2 Palpitations; Z79.891 Long term (current) use of opiate analgesic; Z79.899 Other long term (current) drug therapy

== ENCOUNTER → 2022-12-18 | Outpatient (CLI) | payer MEDICARE, OTHER ==
[~2022-12-18] MED LIST changes: -D31000TA2 PO; -LISI10TA15 PO; +LISI10TA24 PO; -LISI20TA20 PO; +LISI20TA37 PO; -MONT10TA10 PO; +MONT10TA97 PO; +VITA100093 PO
== END ==
LOC: M RAD 06:27
PROVIDERS: ATTEND Nurse Practitioner Family
DX: M54.12 Radiculopathy, cervical region (principal)

== ENCOUNTER 2023-01-09 06:32 | Day surgery (SDC) | payer MEDICARE, OTHER ==
[~2023-01-09] VITALS: Ht 167.6 cm; Wt 97.5 kg
[~2023-01-09 06:32] MED LIST changes: +NS 1,000 ML IV ONE
[2023-01-09] MEDS ORDERED: LIDOCAINE 2% 100MG/5ML SDV (FOR ANES.) As Ordered ONE (07:06)
[2023-01-09] MEDS ORDERED: propofoL 200 MG/20 ML VIAL As Ordered ONE ×2 (07:06→07:44)
[2023-01-09 08:15] VITALS: BP 104/60
== END 2023-01-09 08:16 | disposition home or self-care (01) ==
LOC: M OPP 06:32
PROVIDERS: ATTEND Internal Medicine Gastroenterology
DX: K44.9 Diaphragmatic hernia without obstruction or gangrene (principal); R13.10 Dysphagia, unspecified; I10 Essential (primary) hypertension; E78.00 Pure hypercholesterolemia, unspecified; K58.8 Other irritable bowel syndrome; G47.33 Obstructive sleep apnea (adult) (pediatric); Z99.89 Dependence on other enabling machines and devices; Z79.51 Long term (current) use of inhaled steroids; Z79.899 Other long term (current) drug therapy; Z88.6 Allergy status to analgesic agent; Z88.8 Allergy status to other drugs, medicaments and biological substances

== ENCOUNTER 2024-01-27 12:17 | Day surgery (SDC) | payer MEDICARE, OTHER ==
[~2024-01-27] VITALS: Ht 167.6 cm; Wt 91.4 kg
[~2024-01-27 12:17] MED LIST changes: +ACET-840 PO; +BLAC1CAP2 PO; +CLONI1TA PO; +CYAN500T14 PO; +CYCL-707 PO; +EPIPENSY SC; +ERGO500029 PO; +FAMO10TA50 PO; +GAVICHW5 PO; +KETO2SHA8 TOP; +LAMO50TA PO; +MONT-5 PO; -NS 1,000 ML IV ONE; +OMEG10002 PO; +OMEP40CA4 PO; +OXYB5TAB14 PO; +OXYM30SP; +PEPT262C2 PO; +PROA1AER2 INH; +REFR0.5D8 OU; +REFRSOL OU; -ROPI0.5T3 PO; +ROPI0.5T33 PO; -ROPI1TAB3 PO; +ROPI1TAB73 PO; -SING10TA32 PO; +VANI1CRE5 TOP; -[UNRECOGNIZED DRUG - CODE]; +[UNRECOGNIZED DRUG - OTHER] OU; +qnasal; +requip PO
[2024-01-27] MEDS: NS 1,000 ML IV ONE (12:45)
[2024-01-27] MEDS ORDERED: fentaNYL 100 MCG/2 ML INJECTION As Ordered ONE (13:21)
[2024-01-27] MEDS ORDERED: propofoL 200 MG/20 ML VIAL As Ordered ONE (13:24)
[2024-01-27] MEDS ORDERED: LIDOCAINE 2% 100MG/5ML SDV (FOR ANES.) As Ordered ONE (13:24)
[2024-01-27 14:00] VITALS: TEMP 96.1
[2024-01-27 14:26] VITALS: BP 111/62; O2SAT 99
== END 2024-01-27 14:27 | disposition home or self-care (01) ==
LOC: M OPP 12:17
PROVIDERS: ATTEND Internal Medicine Gastroenterology
DX: Z12.11 Encounter for screening for malignant neoplasm of colon (principal); Z12.12 Encounter for screening for malignant neoplasm of rectum; K64.0 First degree hemorrhoids; K21.00 Gastro-esophageal reflux disease with esophagitis, without bleeding; Z90.49 Acquired absence of other specified parts of digestive tract; G47.30 Sleep apnea, unspecified; I10 Essential (primary) hypertension; J45.909 Unspecified asthma, uncomplicated; R73.03 Prediabetes; E78.00 Pure hypercholesterolemia, unspecified; L30.9 Dermatitis, unspecified; Z79.899 Other long term (current) drug therapy; Z88.8 Allergy status to other drugs, medicaments and biological substances; Z88.6 Allergy status to analgesic agent
CPT/HCPCS: 43239; 88305; G0121; J3010

== ENCOUNTER → 2024-12-25 | Outpatient (CLI) | payer MEDICARE, OTHER ==
[~2024-12-25] MED LIST changes: -ADV250INH INH; +ADVA1AER9 INH; +BARIUM SULFATE 700 MG TABLET (E-Z-DISK) As Ordered ONE; +E-Z-PAQUE 96% w/w SUSP 176GM BTL As Ordered ONE; +FLUO-365 PO; -FLUO20CA22 PO; +VARIBAR NECTAR 40% w/v 240ML SUSP BTL As Ordered ONE; +VARIBAR PUDDING 40% w/v 230ML TUBE As Ordered ONE
== END ==
LOC: M RAD 11:13
PROVIDERS: ATTEND Internal Medicine Gastroenterology
DX: R13.10 Dysphagia, unspecified (principal)

== ENCOUNTER 2025-01-18 08:28 | Day surgery (SDC) | payer MEDICARE, OTHER ==
[~2025-01-18] VITALS: Ht 167.6 cm; Wt 98.2 kg
[~2025-01-18 08:28] MED LIST changes: +B-12100010 PO; -BARIUM SULFATE 700 MG TABLET (E-Z-DISK) As Ordered ONE; +BUPR-597 PO; +CELE1CAP99 PO; +D 50CAP2 PO; -E-Z-PAQUE 96% w/w SUSP 176GM BTL As Ordered ONE; +FLUT12HF2 INH; +MULTTAB61 PO; +OLOP5DRO17; +OMEP40CA5 PO; +OXYC10TA3 PO; +PREG50CA3 PO; -VARIBAR NECTAR 40% w/v 240ML SUSP BTL As Ordered ONE; -VARIBAR PUDDING 40% w/v 230ML TUBE As Ordered ONE; +ZOLP6.2526 PO
[2025-01-18] MEDS ORDERED: fentaNYL 100 MCG/2 ML INJECTION As Ordered ONE (09:26)
[2025-01-18] MEDS ORDERED: LIDOCAINE 2% 100MG/5ML SDV (FOR ANES.) As Ordered ONE (09:26)
[2025-01-18] MEDS ORDERED: propofoL 500 MG/50 ML VIAL As Ordered ONE (09:26)
[2025-01-18 09:42] VITALS: TEMP 97
[2025-01-18 10:00] VITALS: BP 121/65; O2SAT 96
== END 2025-01-18 10:00 | disposition home or self-care (01) ==
LOC: M OPP 08:28
PROVIDERS: ATTEND Internal Medicine Gastroenterology
DX: K22.89 Other specified disease of esophagus (principal); R13.10 Dysphagia, unspecified; G47.30 Sleep apnea, unspecified; Z88.5 Allergy status to narcotic agent; Z88.8 Allergy status to other drugs, medicaments and biological substances; Z91.048 Other nonmedicinal substance allergy status; Z91.018 Allergy to other foods; Z79.899 Other long term (current) drug therapy
CPT/HCPCS: 43249; A4649; J3010

== ENCOUNTER → 2025-02-01 | Outpatient (REF) | payer MEDICARE, OTHER | LOC: M SFHCDERM 12:31 | PROVIDERS: ATTEND Nurse Practitioner Family | DX: D23.61 Other benign neoplasm of skin of right upper limb, including shoulder (principal) ==

== ENCOUNTER → 2025-06-03 | Outpatient (CLI) | payer MEDICARE, OTHER ==
[~2025-06-03] MED LIST changes: -AMBI10TA PO; -AMBI12.52 PO; -BUPR-597 PO; +BUPR-766 PO; +BUPR150T15 PO; -BUPR1TAB53 PO; +KETO120S5 TOP; -KETO2SHA8 TOP; +ZOLP-533 PO; +ZOLP12.561 PO
== END ==
LOC: M WUC 12:44
PROVIDERS: ATTEND Physician Assistant
DX: M54.2 Cervicalgia (principal); S46.811A Strain of other muscles, fascia and tendons at shoulder and upper arm level, right arm, initial encounter; W18.30XA Fall on same level, unspecified, initial encounter; Y92.009 Unspecified place in unspecified non-institutional (private) residence as the place of occurrence of the external cause

== ENCOUNTER → 2025-07-15 | Outpatient (CLI) | payer MEDICARE, OTHER ==
[~2025-07-15] MED LIST changes: -VITA500T17 PO; +VITA500T8 PO
== END ==
LOC: M SOG 06:55
PROVIDERS: ATTEND Neuromusculoskeletal Medicine, Sports Medicine
DX: M25.561 Pain in right knee (principal); M25.562 Pain in left knee

== ENCOUNTER → 2025-08-09 | Outpatient (CLI) | payer MEDICARE, OTHER | LOC: M PLAIMG 14:53 | PROVIDERS: ATTEND Neuromusculoskeletal Medicine, Sports Medicine | DX: M22.42 Chondromalacia patellae, left knee (principal); M25.462 Effusion, left knee ==

== ENCOUNTER 2025-11-23 08:59 | Day surgery (SDC) | payer MEDICARE, OTHER ==
[~2025-11-23] VITALS: Ht 167.6 cm; Wt 94.8 kg
[~2025-11-23 08:59] MED LIST changes: -OLOP5DRO17; +OLOP5DRO17 OU
[2025-11-23] MEDS ORDERED: MIDAZOLAM INJ 2 MG/2 ML VIAL As Ordered ONE (09:17)
[2025-11-23] MEDS ORDERED: LIDOCAINE 2% 100 MG/5 ML SDV (FOR ANES.) As Ordered ONE (09:17)
[2025-11-23] MEDS ORDERED: dexAMETHasone 4 MG/ML 1 ML VIAL As Ordered ONE (09:18)
[2025-11-23] MEDS ORDERED: ONDANSETRON 4MG/2ML VIAL As Ordered ONE (09:18)
[2025-11-23] MEDS: LR 1,000 ML IV SCH (09:40)
[2025-11-23] MEDS ORDERED: dexmedeTOMIDine (4 MCG/ML) 200 MCG/50 ML BTL As Ordered ONE (10:53)
[2025-11-23] MEDS ORDERED: ACETAMINOPHEN 1000MG/100ML IV BAG As Ordered ONE (10:54)
[2025-11-23] MEDS: ROPIvacaine 0.5% 30ML VIAL PN ONE (11:10)
[2025-11-23] MEDS: LIDOCAINE W/EPINEPHrine 1% 20 ML VIAL As Ordered ONE (12:19)
[2025-11-23] MEDS: TRANEXAMIC ACID 100 MG/ML 10ML VIAL As Ordered ONE (12:33)
[2025-11-23] MEDS: VANCOMYCIN 1000MG/20ML VIAL As Ordered ONE (12:33)
[2025-11-23] MEDS: EPINEPHrine 1 MG/ML INJ 30 ML MD-VIAL As Ordered ONE (12:34)
[2025-11-23] MEDS ORDERED: SUGAMMADEX SODIUM 200 MG/2 ML VIAL As Ordered ONE (12:48)
[2025-11-23] MEDS ORDERED: MORPHINE 2 MG/ML 1 ML VIAL IV PRN (14:25)
[2025-11-23] MEDS ORDERED: HYDROMORPHONE HCL 0.5 MG/0.5 ML SYRINGE IV PRN (14:25)
[2025-11-23 15:10] VITALS: BP 125/71; TEMP 96.8; O2SAT 94
== END 2025-11-23 15:40 | disposition home or self-care (01) ==
LOC: M SDC 08:59
PROVIDERS: ATTEND Neuromusculoskeletal Medicine, Sports Medicine
DX: M75.41 Impingement syndrome of right shoulder (principal); M25.711 Osteophyte, right shoulder; S43.431A Superior glenoid labrum lesion of right shoulder, initial encounter; S46.111A Strain of muscle, fascia and tendon of long head of biceps, right arm, initial encounter; X58.XXXA Exposure to other specified factors, initial encounter; Y92.9 Unspecified place or not applicable; Y93.9 Activity, unspecified; M19.011 Primary osteoarthritis, right shoulder; F43.10 Post-traumatic stress disorder, unspecified; G47.30 Sleep apnea, unspecified; Z91.048 Other nonmedicinal substance allergy status; Z91.018 Allergy to other foods; Z88.8 Allergy status to other drugs, medicaments and biological substances; Z79.899 Other long term (current) drug therapy
CPT/HCPCS: 29807; 29824; 29826; 29828; 64415; 93005; C1713; J0131; J0165; J0688; J1100; J2250; J2405; J2795; J3010